=== PATIENT | female | born 1950 | race Caucasian/White ===

== ENCOUNTER 2019-06-07 08:47 | Inpatient (IN) ==
--- NOTE | 2019-05-28 15:36 | PAT Medication Instructions ---
Medication Instructions Date of Service May 28, 2019 Home Medications Bifidobacterium infantis [Align] 4 mg PO HS acetaminophen [Tylenol 8 Hour] 1,300 mg PO Q8H PRN biotin 5,000 mcg PO QAM calcium carbonate-vitamin D3 [Calcium 500 + D] 1 tab PO BID cholecalciferol (vitamin D3) [Vitamin D3] 1,000 unit PO QPM conjugated estrogens [Premarin] 0.625 mg VAGINAL 3XWK omega 5-mxl-atn-fish oil [Fish Oil] 1 cap PO BID pantoprazole 40 mg PO QAM potassium chloride 10 meq PO BID STOP taking 2 weeks before surgery (or as soon as possible if surgery is within 2 weeks) biotin 5,000 mcg PO QAM omega 2-oza-lre-fish oil [Fish Oil] 1 cap PO BID DO NOT take the morning of surgery calcium carbonate-vitamin D3 [Calcium 500 + D] 1 tab PO BID potassium chloride 10 meq PO BID Take morning of surgery With a small sip of water, OTHERWISE NOTHING TO EAT OR DRINK AFTER MIDNIGHT: acetaminophen [Tylenol 8 Hour] 1,300 mg PO Q8H PRN (okay to take up to 4 hours prior to surgery if needed) pantoprazole 40 mg PO QAM Take evening before surgery Bifidobacterium infantis [Align] 4 mg PO HS acetaminophen [Tylenol 8 Hour] 1,300 mg PO Q8H PRN (if needed) calcium carbonate-vitamin D3 [Calcium 500 + D] 1 tab PO BID cholecalciferol (vitamin D3) [Vitamin D3] 1,000 unit PO QPM potassium chloride 10 meq PO BID Other Notes If you have any questions please call us at [phone] or [phone] or [phone] or [phone]
--- NOTE | 2019-05-29 13:12 | Anesthesiology Consultation ---
Date of Service May 29, 2019 Assessment & Plan (1) Encounter for pre-operative examination: Chart Review Chart Review: Pending: Refer to Additional Notes / Consult section (pending preop testing (labs, EKG, CXR)) and Patient seen in Pre Admission Testing Teaching & Discussion Pre-Anesthesia Teaching/Discussion Notes: Instructed NPO after midnight before surgery,except medications with 15 cc of water. Medication instructions prov ided according to the PAT guidelines. History Surgery Operation Date: 06/07/19 07:45 Proposed Procedures p L3-L5 Revision Decompression and Fusion, Spinal Cord Monitoring - Jay Darling DO Height/Weight Height: 5 ft 7 in Weight: 102.5 kg Allergies Allergy/AdvReac Type Severity Reaction Status Date / Time amoxicillin Allergy Unknown Rash Verified 05/22/19 11:42 iodine Allergy Unknown lips Verified 05/29/19 13:11 numbness (tolerated topical betadine) shellfish derived Allergy Unknown lips Verified 05/29/19 13:11 numbness Medications Home Medications Medication Instructions Recorded Confirmed Last Taken Bifidobacterium infantis [Align] 4 mg PO HS 05/22/19 05/22/19 Unknown acetaminophen [Tylenol 8 Hour] 1,300 mg PO Q8H PRN 05/22/19 05/22/19 Unknown biotin 5,000 mcg PO QAM 05/22/19 05/22/19 Unknown calcium carbonate-vitamin D3 1 tab PO BID 05/22/19 05/22/19 Unknown [Calcium 500 + D] cholecalciferol (vitamin D3) 1,000 unit PO QPM 05/22/19 05/22/19 Unknown [Vitamin D3] conjugated estrogens [Premarin] 0.625 mg VAGINAL 3XWK 05/22/19 05/22/19 Unknown omega 4-lbr-mgq-fish oil [Fish Oil] 1 cap PO BID 05/22/19 05/22/19 Unknown pantoprazole 40 mg PO QAM 05/22/19 05/22/19 Unknown potassium chloride 10 meq PO BID 05/22/19 05/22/19 Unknown Past Medical History Medical History Chronic back pain LLE radiculopathy GERD (gastroesophageal reflux disease) controlled Obesity Urinary tract infection hx recurrent Exercise / Class Metabolic Activity II 4-5 Yardwork/Stairs/Walk up hill Past Family History Family History Daughter Family history of reaction to anesthesia PONV Mother Family history of diabetes mellitus Brother Family history of esophageal cancer STOMACH CANCER Past Surgical History Surgical History H/O foot surgery RIGHT FOOT BONE SPUR H/O lumbar discectomy X 2 History of arthroscopy R/L SHOULDER History of bladder surgery WITH RECTOCELE REPAIR History of cardiac cath X3; MOST RECENT 2011= NO STENTS= STRONG FAMILY CARDIAC HISTORY PER PT (BRO THERS) History of cholecystectomy History of hand surgery RIGHT TRIGGER FINGER History of hip surgery R/L-BANDING PROCEDURE History of hysterectomy TOTAL (AGE 33) History of tonsillectomy Past Anesthesia History No Hx of Anesthesia Complications (except PONV) and No Family Hx of Anesthesia Complications (except PONV) History of PONV No Hx of Motion Sickness and History of PONV (Per patient, good response from Zofran/Decadron. Patient had urinary retention with scope patch) Social History Smoking Status: Never smoker Do You Dip or Chew Tobacco: No Hx Alcohol Use: No Hx Substance Use: No Review of Systems Controlled reflux. Patient denies chest pain, shortness of breath, dyspnea on exertion, cough, wheezing, palpitations. Physical Exam Vital Signs VITALS BP 127/72 P 69 TEMP 98.1 SP02 99%RA 18 PHYSICAL Full neck and c-spine range of motion. Full TMJ range of motion. TMD 3 finger breaths Mallampati Score 1 Dentition: missing molars Lungs: clear throughout to auscultation Cardiac: regular rate and rhythm, I/ systolic murmur Spine: normal Carotid arteries: negative bruit Extremities: no edema Testing Echocardiogram Date: 06/27/17 EF 55-60%. Thickened AV/MV. Mild TR.
--- NOTE | 2019-05-29 14:13 | XRay Report ---
XR chest Pre-admission PA/Lat CLINICAL HISTORY: Preoperative evaluation. COMPARISON STUDY: No previous studies for comparison. FINDINGS: Lung volumes are normal. Lungs are clear. There is no pneumothorax or pleural effusion. Car diac size is normal. Mediastinal contours are normal. There is no evidence for pulmonary edema. Incid ental note is made of cholecystectomy clips. IMPRESSION: No acute cardiopulmonary findings. Electronically signed by: Genaro Crisostomo M.D. 05/29/2019 2:12 PM
[2019-05-29 14:39] LABS: Basophils # (auto) 0.01 K/uL (0-0.2); Basophils % (auto) 0.1 %; Eosinophils # (auto) 0.11 K/uL (0-0.5); Eosinophils % (auto) 1.4 %; Hematocrit (blood only) 40.8 % (37-47); Hemoglobin 13.8 g/dL (12.0-16.0); Immature Granulocytes # (auto) 0.01 K/uL (0.00-0.02); Immature Granulocytes % (auto) 0.1 %; Lymphocytes # (auto) 2.71 K/uL (1.2-3.4); Lymphocytes % (auto) 33.7 %; Mean Corpuscular Hgb Conc 33.8 g/dL (32-36); Mean Corpuscular Volume 91.7 fL (80-100); Mean Platelet Volume 9.5 fL (7.4-10.4); Monocytes # (auto) 0.52 K/uL (0.11-0.59); Monocytes % (auto) 6.5 %; Neutrophils # (auto) 4.69 K/uL (1.4-6.5); Neutrophils % (auto) 58.2 %; Platelet Count 222 K/uL (130-400); RDW Coefficient of Variation 13.2 % (11.5-14.5); Red Blood Count 4.45 M/uL (4.2-5.4); White Blood Count 8.05 K/uL (4.8-10.8)
[2019-05-29 14:41] LABS: Appearance Urine Clear (Clear); Bilirubin Urine Negative (Negative); Blood Urine Negative (Negative); Color Urine Yellow; Glucose Urine UA Negative (Negative); Ketones Urine Negative (Negative); Leukocyte Esterase Urine Negative (Negative); Nitrite Urine Negative (Negative); Protein Urine Negative (Negative); Specific Gravity Urine 1.012 (1.000-1.030); Urobilinogen Urine Negative (Negative)
[2019-05-29 14:46] LABS: BUN Creatinine Ratio 24.1 (10-20); Creatinine Clr Calc Pharmacy 101.8 ml/min; Est GFR (African American) 105.9; Est GFR (Non-African American) 91.4; Potassium 3.6 mmol/L (3.5-5.1)
[2019-05-29 14:57] LABS: Partial Thromboplastin Time 26.2 Seconds (21.0-31.0); Prothrombin Time 10.3 Seconds (9.0-12.0)
[~2019-06-07 08:47] MED LIST: ACETAMINOPHEN 500 MG TAB PO SCH; CEFAZOLIN 2000MG 2,000 MG/15 ML SYR IV SCH; CeleBREX 200 MG CAP PO SCH; DEXAMETHASONE SOD INJ 4 MG/ML VIAL ONE; GABAPENTIN 300 MG CAP PO SCH; HYDROmorphone INJ 2 MG/ML SYR/VIAL ONE; KETAMINE HCL INJ 50 MG/ML 10 ML VIAL ONE; LR 15ML/HR IV SCH; MIDAZOLAM HCL 1 MG/ML 2ML VIAL ONE; ONDANSETRON INJ 2 MG/ML 2 ML VIAL ONE; PROPOFOL IV EMULSION 10 MG/ML 20 ML VIAL IV ONE; fentaNYL citrate 100 MCG/2 ML VIAL ONE
[2019-06-07] MEDS ORDERED: ONDANSETRON INJ 2 MG/ML 2 ML VIAL IV PRN ×2 (08:59→14:01)
[2019-06-07] MEDS ORDERED: HYDROmorphone INJ 1 MG/ML SYRINGE IV PRN ×2 (08:59→14:01)
[2019-06-07] MEDS ORDERED: ATROPINE SULFATE 0.1 MG/ML 10ML SYR IV PRN (08:59)
[2019-06-07] MEDS ORDERED: fentaNYL citrate 100 MCG/2 ML VIAL IV PRN (08:59)
[2019-06-07] MEDS ORDERED: ePHEDrine sulfate 50 MG/ML AMP IV PRN (08:59)
--- NOTE | 2019-06-07 09:25 | History & Physical Bridge Note ---
Date of Service June 07, 2019 History & Physical Bridge Note I have examined the patient, reviewed the History & Physical and in the interval since the performance of the History & Physical I have noted the following changes of clinical significance: no changes noted
--- NOTE | 2019-06-07 09:26 | History & Physical Report ---
Date of Service June 07, 2019 Assessment & Plan (1) Spinal stenosis, lumbar region with neurogenic claudication: Revision L3-L5 decompression and fusion Present on Admission?: Yes History of Present Illness Chief Complaint: Back and leg pain Primary Care Provider: Curtis Inman This is a 69-year-old female who presents with worsening chronic persistent back and leg pain. After failing extensive course of nonoperative care is here for surgical intervention. Allergies Allergy/AdvReac Type Severity Reaction Status Date / Time amoxicillin Allergy Unknown Rash Verified 06/07/19 09:19 iodine Allergy Unknown lips Verified 06/07/19 09: numbness (tolerated topical betadine) shellfish derived Allergy Unknown lips Verified 06/07/19 09: numbness Home Medications Home Medications Medication Instructions Recorded Confirmed Type Bifidobacterium infantis [Align] 4 mg PO HS 05/22/19 06/07/19 History acetaminophen [Tylenol 8 Hour] 1,300 mg PO Q8H PRN 05/22/19 06/07/19 History biotin 5,000 mcg PO QAM 05/22/19 06/07/19 History calcium carbonate-vitamin D3 1 tab PO BID 05/22/19 06/07/19 History [Calcium 500 + D] cholecalciferol (vitamin D3) 1,000 unit PO QPM 05/22/19 06/07/19 History [Vitamin D3] conjugated estrogens [Premarin] 0.625 mg VAGINAL 3XWK 05/22/19 06/07/19 History omega 8-dwi-oap-fish oil [Fish Oil] 1 cap PO BID 05/22/19 06/07/19 History pantoprazole 40 mg PO QAM 05/22/19 06/07/19 History potassium chloride 10 meq PO BID 05/22/19 06/07/19 History sulfamethoxazole-trimethoprim 1 tab PO BID 06/07/19 06/07/19 History [Bactrim DS] Past Med/Surg History Medical History Chronic back pain LLE radiculopathy GERD (gastroesophageal reflux disease) controlled Obesity Urinary tract infection hx recurrent Surgical History H/O foot surgery RIGHT FOOT BONE SPUR H/O lumbar discectomy X 2 History of arthroscopy R/L SHOULDER History of bladder surgery WITH RECTOCELE REPAIR History of cardiac cath X3; MOST RECENT 2012= NO STENTS= STRONG FAMILY CARDIAC HISTORY PER PT (BROTHERS) History of cholecystectomy History of hand surgery RIGHT TRIGGER FINGER History of hip surgery R/L-BANDING PROCEDURE History of hysterectomy TOTAL (AGE 33) History of tonsillectomy Family History Daughter Family history of reaction to anesthesia PONV Mother Family history of diabetes mellitus Brother Family history of esophageal cancer STOMACH CANCER Social History Preferred Language: Montenegrin Communication Ability: Effective Van Driver Required: No Beliefs That Will Affect Care: None Current Living Situation: Spouse Other Information That Helps Us Care for You: No Feels Safe at Home: Yes Safety Concerns: Feels Safe At This Time Smoking Status: Never smoker Do You Dip or Chew Tobacco: No ; Second Hand Exposure: No ; Hx Alcohol Use: No Hx Substance Use: No Physical Exam Physical Exam: Patient is alert and oriented neurologically intact.
[2019-06-07] MEDS ORDERED: BACITRACIN INJ 50,000 UNIT VIAL ONE (09:41)
[2019-06-07] MEDS ORDERED: BUPIVACAINE/EPINEPHRINE 0.5% MPF 1:200,000 30 ML VIAL ONE (09:41)
[2019-06-07] MEDS ORDERED: CLINDAMYCIN 600 MG/54 ML D5W IV ONE (09:49)
[2019-06-07] MEDS ORDERED: PROMETHAZINE HCL 12.5 MG in SODIUM CHLORIDE 0.9% 50 ML IV PRN (09:56)
[2019-06-07] MEDS ORDERED: NEOSTIGMINE METHYLSULFATE 1 MG/ML 10ML VIAL ONE (10:53)
[2019-06-07] MEDS ORDERED: GLYCOPYRROLATE 0.2 MG/ML VIAL ONE (10:53)
[2019-06-07] MEDS ORDERED: ROCURONIUM BROMIDE 10 MG/ML 5 ML VIAL ONE (10:53)
[2019-06-07] MEDS ORDERED: FLOSEAL HEMOSTATIC MATRIX 10ML TOP ONE (11:53)
--- NOTE | 2019-06-07 11:56 | Operative Report ---
Post Operative Report Pre & Post Diagnosis Operation Date: 06/07/19 10:25 Pre-Op Diagnosis: Spinal stenosis, lumbar region with neurogenic claudication Post-Op Diagnosis: Spinal stenosis, lumbar region with neurogenic claudication I identified the patient and participated in the time-out.: Yes Procedure Operation Date: 06/07/19 10:25 Actual Procedures #1 revision decompression with bilateral medial facetectomies foraminotomies L3- 4 L4-5. #2 posterior spinal fusion L3-4 L4-5. #3 placement posterior instrumentation L3-4 L4-5. #4 interbody fusion L4-5. #5 placed a peek cage 13 x 26 mm at L4-5. #6 placement of local autograft in the posterior lateral gutters. #7 placement infuse collagen sponge bone mass graft in the posterior gutters and ostial amp and interbody space. Surgeon Jay Darling, Postal Superintendent Nell De Luna Estimated Blood Loss 100 Findings See Below The patient is 5 foot 7 inches tall weighing over 99 kg with a BMI in excess of 34. Patient's body habitus did add significant technical difficulty throughout the procedure requiring her longest retractors and instruments in order to perform. This added at least 40% increase in operative time. Specimens None Indications This is a 69-year-old female who presents with above-mentioned diagnosis after failing extensive course of nonoperative care she like to undergo the above- mentioned procedure. Description of Procedure Patient was met with identified and informed consent obtained. Patient was then taken to the operative suite underwent intubation placed in the prone position the Thuan table on top of the Anton frame. All bony prominences well-padded eyes inspected to ensure no external pressure placed upon the peer at this point the lumbar spine was prepped and draped in normal sterile fashion. Sharp dissection with the assistance of Bovie cautery was performed down to and exposing the remaining lamina and transverse processes of L3-L4-L5 bilaterally. From a caudal to cephalad fashion a revision complete laminectomy of L4 and L3 was performed including medial facetectomies and foraminotomies addressing severe stenosis as well as addressing the recurrent disc herniation at L4-5 on the left. After this complete pedicle screws were placed in L3-L4-L5 b ilaterally with assistance of fluoroscopy and the appropriate size harris placed. By way of a transforaminal approach on the left complete discectomy of L4-5 was performed endplates curetted to subcortical bleeding bone and a 13 x 26 mm peek cage filled with osteo-amp bone graft tapped in position. The rods were then locked in final position bilaterally. The transverse processes of L3-L4-L5 bur to subcortical bleeding bone. Infuse collagen sponge master graft and local autograft placed in the posterior lateral gutters. 15 round STEVE drain inserted. Incision was then closed with 1 Vicryl in the fascia 2-0 Vicryl substantially and 4 Monocryl for final skin closure. Steri-Strip sterile dressings placed. Patient will continue PACU stable disc. Please note Nell De Luna present throughout the entire procedure involved in patient positioning complex portions of the surgery and final skin closure. Lastly spinal cord monitoring was utilized that the procedure and no changes noted. I attest to the content of the Intraoperative Record and any orders documented therein. Any exceptions are noted below.
--- NOTE | 2019-06-07 12:50 | Fluoroscopy Report ---
FL lumbar spine 2-3V CLINICAL HISTORY: L3-L5 REVISION DECOMPRESSION AND FUSION COMPARISON STUDY: None FLUOROSCOPY TIME: 14 seconds NUMBER OF FLUOROSCOPIC IMAGES: 2 FINDINGS: Image intensifier support for an L3-L5 decompression and fusion IMPRESSION: Image intensifier support for an L3-L5 decompression and fusion. The above report was generated using voice recognition software. It may contain grammatical, syntax or spelling errors. Electronically signed by: Daniel Salvador M.D. 06/07/2019 12:48 PM
[2019-06-07] MEDS ORDERED: ACETAMINOPHEN 1,000 MG/100 ML VIAL IV PRN (14:01)
[2019-06-07] MEDS ORDERED: ONDANSETRON 4 MG TAB PO PRN (14:01)
[2019-06-07] MEDS ORDERED: ALUMINUM/MAGNESIUM SUSP 30 ML UDC PO PRN (14:01)
[2019-06-07] MEDS ORDERED: FAMOTIDINE 20 MG TAB PO PRN (14:01)
[2019-06-07] MEDS ORDERED: NALOXONE HCL 0.4 MG/1 ML VIAL/CARP IV PRN (14:01)
[2019-06-07] MEDS ORDERED: HYDROmorphone INJ 0.5 MG/0.5 ML SYR IV PRN (14:01)
[2019-06-07] MEDS ORDERED: DO NOT ADMINISTER PNEUMOCOCCAL VACCINE PRN (14:01)
[2019-06-07] MEDS ORDERED: LORazepam 0.5 MG TAB PO PRN (14:01)
[2019-06-07] MEDS ORDERED: LORazepam 0.5 MG/1 ML VIAL IV PRN (14:01)
[2019-06-07] MEDS ORDERED: DO NOT ADMINISTER FLU VACCINE PRN (14:01)
[2019-06-07] MEDS ORDERED: SOD PHOSPHATE/SOD BIPHOSPHATE ENEMA 132 ML BTL PR PRN (14:01)
[2019-06-07] MEDS ORDERED: METOCLOPRAMIDE HCL INJ 5 MG/ML 2 ML VIAL IV PRN (14:01)
[2019-06-07] MEDS ORDERED: bisacodyL 10 MG SUPP PR PRN (14:01)
--- NOTE | 2019-06-07 14:12 | Anesthesiology Progress Note ---
Date of Service June 07, 2019 Anesthesia Post Procedure Vital Signs Vital Signs: Temp Pulse Pulse Resp BP Pulse Ox 06/07/19 13:20 71 13 113/60 95 06/07/19 13:10 72 12 113/62 96 06/07/19 12:55 72 22 113/58 L 96 06/07/19 12:45 36.0 C L 77 15 113/58 L 97 06/07/19 12:35 77 14 113/64 97 06/07/19 12:25 76 13 127/64 97 06/07/19 12:19 36.2 C L 83 15 122/60 98 06/07/19 09:27 36.3 C L 73 20 137/82 95 Pain Intensity Left Leg: Pain Intensity: 3 Lower Back: Pain Intensity: 1 Transfer of Care Handoff Completed per policy Notes Mental Status: alert / awake / arousable and participated in evaluation Patient Amnestic to Procedure: Yes Nausea / Vomiting: adequately controlled Pain: adequately controlled Airway Patency, RR, SpO2: stable & adequate BP & HR: stable & adequate Hydration State: stable & adequate Anesthetic Complications: no major complications apparent and Pt Satisfied with anesthetic care
[2019-06-07] MEDS: PROMETHAZINE HCL 12.5 MG in SODIUM CHLORIDE 0.9% 50 ML IV PRN (14:23)
[2019-06-07] MEDS: PREMARIN VAG CRM 14 APPLN/30 GM TUBE PV SCH (15:24)
[2019-06-07] MEDS: KETOROLAC TROMETHAMINE 15 MG/ML VIAL IV SCH ×2 (15:30→21:40)
[2019-06-07] MEDS: CLINDAMYCIN 600 MG in DEXTROSE 5% 50 ML IV SCH (19:09)
[2019-06-07] MEDS ORDERED: NON-FORMULARY MEDICATION (Bifidobacterium Infantis [Align] 4 MG) PO SCH (21:00)
[2019-06-07] MEDS: DOCUSATE SODIUM/SENNA 50/8.6MG TAB PO SCH (21:40)
[2019-06-07] MEDS: POTASSIUM CHLORIDE 10 MEQ TABCR PO SCH (21:40)
[2019-06-07] MEDS: CALCIUM 600MG + VIT D 400 IU TAB PO SCH (21:40)
[2019-06-07] MEDS: LACTATED RINGER'S 1,000 ML IV SCH (21:42)
[2019-06-08] MEDS: CLINDAMYCIN 600 MG in DEXTROSE 5% 50 ML IV SCH (02:58)
[2019-06-08] MEDS: KETOROLAC TROMETHAMINE 15 MG/ML VIAL IV SCH ×2 (02:59→10:27)
[2019-06-08] MEDS: ACETAMINOPHEN 500 MG TAB PO PRN ×2 (03:59→17:13)
[2019-06-08 05:25] LABS: Hematocrit (blood only) 33.9 % (37-47); Hemoglobin 11.8 g/dL (12.0-16.0); Immature Granulocytes # (auto) 0.03 K/uL (0.00-0.02); Immature Granulocytes % (auto) 0.2 %; Lymphocytes # (auto) 1.42 K/uL (1.2-3.4); Lymphocytes % (auto) 9.6 %; Mean Corpuscular Hemoglobin 31.2 pg (25-34); Mean Corpuscular Hgb Conc 34.8 g/dL (32-36); Mean Corpuscular Volume 89.7 fL (80-100); Mean Platelet Volume 9.2 fL (7.4-10.4); Monocytes # (auto) 0.69 K/uL (0.11-0.59); Monocytes % (auto) 4.7 %; Neutrophils # (auto) 12.69 K/uL (1.4-6.5); Neutrophils % (auto) 85.5 %; Platelet Count 238 K/uL (130-400); RDW Coefficient of Variation 12.9 % (11.5-14.5); RDW Standard Deviation 41.7 fL (36.4-46.3); Red Blood Count 3.78 M/uL (4.2-5.4); White Blood Count 14.83 K/uL (4.8-10.8)
[2019-06-08 05:52] LABS: BUN Creatinine Ratio 17.6 (10-20); Calcium 8.5 mg/dl (8.5-10.1); Est GFR (Non-African American) 69.9; Potassium 4.5 mmol/L (3.5-5.1)
[2019-06-08] MEDS: POLYETHYLENE (MIRALAX) 17 GM PACK PO SCH ×4 (06:00→23:31)
[2019-06-08] MEDS: OXYCODONE HCL IR 5 MG TAB (IMMEDIATE RELEASE) PO PRN ×3 (06:06→23:34)
[2019-06-08] MEDS: LACTATED RINGER'S 1,000 ML IV SCH (07:13)
[2019-06-08] MEDS: CALCIUM 600MG + VIT D 400 IU TAB PO SCH ×2 (08:32→20:32)
[2019-06-08] MEDS: POTASSIUM CHLORIDE 10 MEQ TABCR PO SCH ×2 (08:32→20:33)
[2019-06-08] MEDS: PANTOprazole 40 MG TAB PO SCH (08:32)
[2019-06-08] MEDS ORDERED: NON-FORMULARY MEDICATION (Biotin 5,000 MCG) PO SCH (09:00)
--- NOTE | 2019-06-08 13:02 | Orthopedic Progress Note ---
Date of Service June 08, 2019 Assessment & Plan (1) Spinal stenosis, lumbar region with neurogenic claudication: This time we will continue physical therapy monitor STEVE output hopefully discharge home this weekend. Present on Admission?: Yes Subjective Patient's back pain is controlled leg symptoms markedly improved. Physical Exam Physical Exam: Patient is ambulate in halls is good strength testing. Appears comfortable. Results & Data Vital Signs (Past 12 Hours) Vital Signs Temp Pulse Resp BP BP Pulse Ox 06/08/19 11:40 99 06/08/19 11:26 36.5 C 67 16 106/65 97 06/08/19 07:35 36.5 C 66 16 98/61 L 98 06/08/19 03:49 36.7 C 67 16 95/55 L 98
[2019-06-08] MEDS: TRAMADOL HCL 50 MG TABLET PO PRN (14:21)
[2019-06-08] MEDS: DOCUSATE SODIUM/SENNA 50/8.6MG TAB PO SCH (20:33)
[2019-06-09] MEDS: TRAMADOL HCL 50 MG TABLET PO PRN ×3 (05:26→22:15)
[2019-06-09] MEDS: POLYETHYLENE (MIRALAX) 17 GM PACK PO SCH ×4 (05:26→23:20)
[2019-06-09] MEDS: OXYCODONE HCL IR 5 MG TAB (IMMEDIATE RELEASE) PO PRN (08:38)
[2019-06-09] MEDS: PANTOprazole 40 MG TAB PO SCH (08:39)
[2019-06-09] MEDS: POTASSIUM CHLORIDE 10 MEQ TABCR PO SCH ×2 (08:39→20:28)
[2019-06-09] MEDS: CALCIUM 600MG + VIT D 400 IU TAB PO SCH ×2 (08:39→20:28)
[2019-06-09] MEDS: PREMARIN VAG CRM 14 APPLN/30 GM TUBE PV SCH (08:40)
--- NOTE | 2019-06-09 09:38 | Orthopedic Progress Note ---
Date of Service June 09, 2019 Assessment & Plan (1) Spinal stenosis, lumbar region with neurogenic claudication: This time we will continue physical therapy we will advance her bowel regimen today. Hopefully discharge home tomorrow. Present on Admission?: Yes Subjective Patient's back pain is controlled leg symptoms improved. Physical Exam Physical Exam: Patient is ambulating halls with good strength testing. Results & Data Vital Signs (Past 12 Hours) Vital Signs Temp Pulse Resp BP BP Pulse Ox 06/09/19 07:10 36.8 C 77 16 107/70 95 06/08/19 23:12 36.7 C 75 16 132/69 99
[2019-06-09] MEDS: MAGNESIUM HYDROXIDE SUSP 30 ML UDC PO PRN (11:38)
[2019-06-09] MEDS: PROMETHAZINE HCL 12.5 MG in SODIUM CHLORIDE 0.9% 50 ML IV PRN ×2 (12:23→13:17)
[2019-06-09] MEDS: ACETAMINOPHEN 500 MG TAB PO PRN (17:01)
[2019-06-09] MEDS: DOCUSATE SODIUM/SENNA 50/8.6MG TAB PO SCH (20:28)
[2019-06-10] MEDS: POLYETHYLENE (MIRALAX) 17 GM PACK PO SCH ×2 (05:27→11:29)
[2019-06-10] MEDS: TRAMADOL HCL 50 MG TABLET PO PRN (05:31)
[2019-06-10] MEDS: MAGNESIUM HYDROXIDE SUSP 30 ML UDC PO PRN (07:27)
[2019-06-10] MEDS: PANTOprazole 40 MG TAB PO SCH (07:28)
[2019-06-10] MEDS: POTASSIUM CHLORIDE 10 MEQ TABCR PO SCH (07:28)
[2019-06-10] MEDS: CALCIUM 600MG + VIT D 400 IU TAB PO SCH (07:28)
[2019-06-10] MEDS: PROMETHAZINE HCL 12.5 MG in SODIUM CHLORIDE 0.9% 50 ML IV PRN (08:40)
--- NOTE | 2019-06-10 10:20 | Discharge Summary ---
Date of Service June 10, 2019 Admission HPI Per Admitting Provider This is a 69-year-old female who presents with worsening chronic persistent back and leg pain. After failing extensive course of nonoperative care is here for surgical intervention. Principal Diagnosis Lumbar spinal stenosis with neurogenic claudication Discharge Data Allergies Allergy/AdvReac Type Severity Reaction Status Date / Time amoxicillin Allergy Unknown Rash Verified 06/07/19 09:19 iodine Allergy Unknown lips Verified 06/07/19 09:19 numbness (tolerated topical betadine) shellfish derived Allergy Unknown lips Verified 06/07/19 09:19 numbness Consultations 06/07/19 14:01 Consult Case Management - Discharge Planning Routine Procedures Performed Operation Date: 06/07/19 10:25 Actual Procedures p L3-L5 Revision Decompression and Fusion, Spinal Cord Monitoring(Not Applicable) - Jay Darling DO Ordered Studies 06/07/19 10:25 FL fluoroscopy <1hr Routine FL lumbar spine 2-3V Routine Hospital Course (1) Spinal stenosis, lumbar region with neurogenic claudication: Patient underwent lumbar depression fusion tolerance was taken to orthopedic for postoperative. Pain is well controlled. She is up and ambulating without difficulty STEVE drain decreased probably. She was neurologically intact and subsequent discharge home. Discharge orders instructions from the chart for further review. Total Time Total Time Spent Total Time Spent (In Minutes): 20 minutes Discharge Plan Discharge Items Patient Disposition: Home - Self-Care Reason For Visit: Radiculopathy, Lumbar Region Discharge Diagnosis: Lumbar spinal stenosis with neurogenic claudication Activity: Per Instructions section Non-emergency contact: Primary Care Provider Call non-emergency contact if: you have any medication questions Follow-up/Referrals: Curtis Inman [Primary Care Provider] - Diet: Regular Addtl Attending Provider Instructions: ACTIVITY RECOMMENDATIONS: SELF CARE INSTRUCTIONS AFTER THORACIC/LUMBAR FUSIONS 1. You may walk to your tolerance. It is good exercise for your legs and back. Expect some back and intermittent leg aches and pains. 2. You may perform "counter-top" level activities (make a sandwich, huy with a project, etc.). 3. No bending or lifting of more than 10 pounds or back twisting of any nature (roll like a log when turning in bed). 4. You may ride in a car for 20-30 minutes at a time. No driving until after your first visit with your doctor. 5. Frequent changes of position and restricting sitting to 30 minutes at a time will help limit the amount of back spasms and stiffness you may experience. 6. You may discontinue the use of ambulatory aids (cane, crutches, etc.) once your strength and confidence allow. 7. You may broommaking supervisor the shower and let water strike your incision when you arrive home at least once daily. Do not take a tub bath, sit in a hot tub or go into a swimming pool until after your first recheck in the office. SPECIAL CARE INSTRUCTIONS: VERY IMPORTANT TO READ AND REVIEW A. Your surgical incision has been closed with a cosmetic suture under the skin that will dissolve in about 6 weeks. In 14 days, you can use a pair of clean scissors and cut the suture that is left outside of the skin at the ends of your incision. 1. The small skin tapes can be removed 7 days after surgery if they have not fallen off by that point. 2. You may keep the wound open to air as much as possible to promote healing after post-op day number 5 unless told otherwise by your doctor. 3. If you think the wound looks like it is becoming infected (redness or worsening drainage) and/or you are experiencing fever, chill or worsening back pain and muscle spasms, contact the office so that we may evaluate you as soon as possible. B. Complications are uncommon, but please contact us if you have any signs or symptoms of: 1. wound infection (fever higher than 102.5 degrees F, redness, separation of wound, drainage, or increasing pain from the incision) 2. blood clots in legs (pain, swelling, redness and warmth in legs) 3. urinary tract infection (fever higher than 102.5 degrees F, burning upon urination or increased frequency of urination) 4. nerve problems (inability to walk on your toes or heels, numbness, loss of bowel or bladder control) 5. any other symptoms that concern you C. Please call the office at if you have any concerns or questions about your operation or recovery. D. No smoking! Smoking drastically decreases the chance of a solid fusion. E. Do not take any anti-inflammatory medications (Indocin, Advil, Motrin, Aspirin, Naprosyn, etc.) as these may inhibit the chance of a solid fusion. Tylenol is okay to take for pain. MANAGING PAIN AFTER SPINAL SURGERY 1. Narcotic medication is intended for short-term use and will be provided for surgical pain. Surgical pain usually lasts for a period of 4-6 weeks. Narcotic medication includes Percocet, Vicodin, Darvocet, Tylenol #3 or Lortab. 2. Longer-term pain is more appropriately treated with non-narcotic medication such as Tylenol ES. 3. Muscle spasm is not appropriately treated with narcotics. Muscle relaxers such as Soma, Flexeril or Skelaxin can be used along with Tylenol ES. 4. Remember that we all live with some "aches and pains". This is not unusual or uncommon after an injury or as we get older. a. Back pain is expected and may include muscle spasms for 4 to 6 weeks after surgery. The pain should gradually improve. If the pain worsens for no apparent reason, please contact the office. b. Intermittent leg pain may also be experienced and should not be concerned about unless it worsens for no apparent reason. If so, please contact the office. 5. We will provide appropriate medication within the normal guidelines of their prescribed use. We will also be very cautious and aware of potential abuse and extended duration of patients' medication needs. a. Pain medications are for your comfort and to assist with sleep and rest so that the tissue can heal. They are not provided in order to return to normal activity and should not be used through the day. To do so or worsening pain at night can result from ongoing tissue damage and development of tolerance to the prescribed medicine. 6. Please allow 2-3 days to process refills. Prescriptions will not be mailed but must be picked up at the office. FOLLOW UP VISIT: Keep your scheduled follow-up appointment. Any questions, please call the office at . Pending Studies at Discharge: No Stand-Alone Forms: My [employer], Smoking Cessation Medications and DC Order Prescriptions: New tramadol 50 mg tablet 50 mg PO Q6H PRN (Reason: pain, moderate) Qty: 30 RF: 0 oxycodone 5 mg tablet 5 mg PO Q6H PRN (Reason: pain, severe) Qty: 30 RF: 0 Continued potassium chloride 10 mEq Capsule, Extended Release 10 meq PO BID RF: 0 pantoprazole 40 mg Tablet,Delayed Release (Dr/Ec) 40 mg PO QAM RF: 0 Premarin 0.625 mg/gram Cream 0.625 mg VAGINAL 3XWK RF: 0 cholecalciferol (vitamin D3) [Vitamin D3] 1,000 unit Capsule 1,000 unit PO QPM RF: 0 calcium carbonate-vitamin D3 [Calcium 500 + D] 500 mg(1,250mg) -200 unit Tablet 1 tab PO BID RF: 0 Align 4 mg Capsule 4 mg PO HS RF: 0 omega 5-iku-gaw-fish oil [Fish Oil] 1,000 mg (120 mg-180 mg) Capsule 1 cap PO BID RF: 0 biotin 5,000 mcg Tablet,Disintegrating 5,000 mcg PO QAM RF: 0 acetaminophen [Tylenol 8 Hour] 650 mg Tablet Extended Release 1,300 mg PO Q8H PRN (Reason: Pain) RF: 0 sulfamethoxazole-trimethoprim [Bactrim DS] 800-160 mg Tablet 1 tab PO BID RF: 0 Discharge Orders: Discharge Order (Routine); Ordered 06/10/19 Ordered By: Jay Darling Admission Data Admit Date/Time: 06/07/19 12:00 Attending Provider: Jay Darling Admit Provider: Jay Darling Primary Care Provider: Curtis Inman
== END 2019-06-10 16:45 | disposition home or self-care (01) | DRG 455 ==
LOC: ASU 08:47 → 3E 12:00
DX: M48.062 Spinal stenosis, lumbar region with neurogenic claudication